=== PATIENT | male | born 1970 ===

== ENCOUNTER 2018-09-07 08:23 | Outpatient (REF) | payer BC, SELFPAY ==
[2018-09-07 22:37] LABS: Cholesterol 205 mg/dL (50-200); HDL Cholesterol 45 mg/dL (40-60); LDL CHOLESTEROL 142 mg/dL (<100); Triglyceride 94 mg/dL (30-150)
== END 2018-09-07 08:43 ==
LOC: NCHCN 08:23
PROVIDERS: PCP Family Medicine; Visit Provider Registered Nurse
DX: Z00.00 Encounter for general adult medical examination without abnormal findings (principal); I10 Essential (primary) hypertension; F17.220 Nicotine dependence, chewing tobacco, uncomplicated; Z82.49 Family history of ischemic heart disease and other diseases of the circulatory system
CPT/HCPCS: 80061; 83721

== ENCOUNTER 2021-04-04 16:09 | Outpatient (REF) | payer BC, SELFPAY ==
[2021-04-04 21:35] LABS: Anion Gap 8.5 mmol/L (3-11); BUN 17 mg/dL (7-18); CO2 28.5 mmol/L (21.0-32.0); CREATININE 0.9 mg/dL (0.70-1.30); Calcium 8.9 mg/dL (8.5-10.1); Calculated LDL 154 mg/dL (<100); Chloride 105 mmol/L (98-107); Cholesterol 221 mg/dL (<200); Glucose 97 mg/dL (74-106); HDL Cholesterol 48 mg/dL (40-60); Potassium 4.2 mmol/L (3.5-5.1); Sodium 142 mmol/L (136-145); Triglyceride 95 mg/dL (<150)
== END 2021-04-04 16:10 | disposition home or self-care (01) ==
LOC: NCHCN 16:09
PROVIDERS: PCP Family Medicine; Visit Provider Registered Nurse
DX: I10 Essential (primary) hypertension (principal); Z00.00 Encounter for general adult medical examination without abnormal findings
CPT/HCPCS: 80048; 80061